=== PATIENT | male | born 1970 | race Caucasian/White ===

== ENCOUNTER 2016-12-27 13:42 | Emergency (ER) | payer MEDICAID ==
[~2016-12-27] VITALS: Ht 172.7 cm; Wt 90.7 kg
[2016-12-27 13:51] VITALS: BP_SYST 136
--- NOTE | 2016-12-27 13:56 | NUR ---
Pt to bed 4
--- NOTE | 2016-12-27 14:00 | NUR ---
Received Pt in bed 4. Pt c/o blurred vision and white spots on hands. Redness noted bilateral eyes, no drainage noted.
--- NOTE | 2016-12-27 14:15 | NUR ---
Pt refusing EKG. Unable to place leads on Pt. Pt has a hairy chest. Pt refuse to shave chest hair off.
--- NOTE | 2016-12-27 14:49 | NUR ---
Dr. Sandoval at the bedside evaluating Pt and discussing plan of care.
[2016-12-27 14:54] LABS: BASOPHILS # (AUTO) 0.1 K/uL (0.0-0.2); BASOPHILS % (AUTO) 1.3 % (0.0-2.0); EOSINOPHILS # (AUTO) 0.1 K/uL (0.0-0.4); EOSINOPHILS % (AUTO) 1.9 % (0.0-4.0); HEMATOCRIT 41.2 % (36-54); HEMOGLOBIN 13.9 g/dL (14.0-18.0); LYMPHOCYTES # (AUTO) 1.5 K/uL (1.0-5.5); LYMPHOCYTES % (AUTO) 23.5 % (20.5-51.5); MEAN CORPUSCULAR HEMOGLOBIN 28 pg (27-31); MEAN CORPUSCULAR HGB CONC 34 % (32-36); MEAN CORPUSCULAR VOLUME 83 fL (79.0-98.0); MONOCYTES # (AUTO) 0.4 K/uL (0.0-1.0); MONOCYTES % (AUTO) 6.3 % (1.7-9.3); NEUTROPHILS # (AUTO) 4.3 K/uL (1.8-7.7); PLATELET COUNT (AUTO) 196 K/uL (130-430); RED BLOOD CELL COUNT(AUTO) 4.99 MIL/uL (4.2-6.2); RED CELL DISTRIBUTION WIDTH 11.8 % (9.0-15.0); WHITE BLOOD COUNT (AUTO) 6.4 K/uL (4.8-10.8)
[2016-12-27 15:04] LABS: INR 1.1 (0.80-1.20); PROTHROMBIN TIME 11.6 SECS (9.5-12.5)
[2016-12-27 15:07] LABS: CALCIUM 9.1 mg/dL (8.4-11.0); CREATININE 0.82 mg/dL (0.55-1.30); POTASSIUM 4.1 mmol/L (3.5-5.1)
[2016-12-27 15:11] LABS: ALBUMIN 3.7 g/dL (3.4-4.8); TOTAL BILIRUBIN 0.6 mg/dL (0.0-1.0); TOTAL PROTEIN, SERUM 7.7 g/dL (6.4-8.3)
--- NOTE | 2016-12-27 15:36 | NUR ---
Dr. Sandoval at the bedside discussing plan of care.
[2016-12-27 15:40] VITALS: BP_SYST 137
--- NOTE | 2016-12-27 15:41 | NUR ---
Patient given written and verbal discharge instructions and verbalizes understanding. ER MD discussed with patient the results and treatment provided. Given copies of tests performed in ER. Patient in stable condition. ID arm band removed. Rx of Azithromycin given. Patient educated on pain management and to follow up with PMD. Pain Scale 0/10. Opportunity for questions provided and answered. Pt ambulated to private auto
[2016-12-27 15:55] LABS: BILIRUBIN,URINE NEGATIVE (NEGATIVE); CLARITY/URINE CLEAR (CLEAR); COLOR,URINE YELLOW (YELLOW); GLUCOSE,URINE TRACE (NEGATIVE); KETONES,URINE NEGATIVE (NEGATIVE); LEUKOCYTE ESTERASE ,URINE NEGATIVE (NEGATIVE); NITRITE, URINE NEGATIVE (NEGATIVE); PROTEIN URINE NEGATIVE (NEGATIVE)
[2016-12-27 16:09] LABS: BLOOD, URINE TRACE (NEGATIVE)
[2016-12-27 16:25] LABS: BACTERIA,URINE FEW /HPF (None Seen); MUCUS,URINE 2+ /LPF (None Seen)
== END 2016-12-27 15:41 | disposition home or self-care (01) ==
LOC: SED 13:42
DX: R00.2 Palpitations (principal); T36.0X5A Adverse effect of penicillins, initial encounter; J20.9 Acute bronchitis, unspecified; E11.9 Type 2 diabetes mellitus without complications; I10 Essential (primary) hypertension; Z86.79 Personal history of other diseases of the circulatory system; Y92.89 Other specified places as the place of occurrence of the external cause
CPT/HCPCS: 36415; 80053; 81000-TC; 83880; 84484; 85025; 85610-TC; 85730-TC; 99285

== ENCOUNTER 2017-10-08 17:24 | Emergency (ER) | payer MEDICAID ==
[~2017-10-08] VITALS: Ht 172.7 cm; Wt 92.1 kg
[2017-10-08 18:01] VITALS: BP_SYST 109
--- NOTE | 2017-10-08 18:09 | NUR ---
Patient ambulated with steady gait into triage from outside. After triage placed in waiting room. VSS and patient appears in no acute distress at this time. Accompanied by , awaiting available bed, and MD notified of need for MSE. After triage pt stated he can't walk, provided patient ambulated from triage chair into WC with no assistance. Informed to remain NPO, requested urine sample patient refused
--- NOTE | 2017-10-08 18:34 | NUR ---
Patient to ER bed 02 to gown for evaluation. Side rails up. Report given to YANETH Kraus.
--- NOTE | 2017-10-08 18:53 | NUR ---
Dr. Sumner at bedside for evaluation
[2017-10-08] MEDS ORDERED: NACL 0.9% 1,000 ML IV ONE (18:56)
[2017-10-08] MEDS ORDERED: KETOROLAC TROMETHAMINE 30 MG VIAL IVP ONE (19:00)
--- NOTE | 2017-10-08 19:10 | NUR ---
Patient states abdominal pain is pain scale 7/10 at this time with a sharp sensation.
--- NOTE | 2017-10-08 19:10 | NUR ---
Assumed care of patient. Patient calmly resting in ER bed, no signs of distress noted. Vital signs reassessed.
--- NOTE | 2017-10-08 19:10 | NUR ---
Patient AAOx3, ambulatory. Patient states having "generalized abdominal pain" for approximately 5 days prior to ER visit with +nausea and +vomiting. Patient denies diarrhea at this time. Patient also states he has burning on urination. Patient denies any other complaints.
[2017-10-08 19:15] LABS: BASOPHILS # (AUTO) 0.1 K/uL (0.0-0.2); EOSINOPHILS # (AUTO) 0.1 K/uL (0.0-0.4); EOSINOPHILS % (AUTO) 1.2 % (0.0-4.0); HEMATOCRIT 38.2 % (36-54); HEMOGLOBIN 12.4 g/dL (14.0-18.0); LYMPHOCYTES # (AUTO) 1.1 K/uL (1.0-5.5); LYMPHOCYTES % (AUTO) 16.7 % (20.5-51.5); MEAN CORPUSCULAR HEMOGLOBIN 27 pg (27-31); MEAN CORPUSCULAR HGB CONC 33 % (32-36); MEAN CORPUSCULAR VOLUME 82 fL (79.0-98.0); MONOCYTES # (AUTO) 0.5 K/uL (0.0-1.0); MONOCYTES % (AUTO) 7.8 % (1.7-9.3); NEUTROPHILS % (AUTO) 72.3 % (40.0-70.0); PLATELET COUNT (AUTO) 219 K/uL (130-430); RED BLOOD CELL COUNT(AUTO) 4.67 MIL/uL (4.2-6.2); RED CELL DISTRIBUTION WIDTH 13.1 % (9.0-15.0); WHITE BLOOD COUNT (AUTO) 6.8 K/uL (4.8-10.8)
--- NOTE | 2017-10-08 19:20 | NUR ---
Note riveraone in EDM - 10/08/17 at 1928 by SUJATA # 20 gauge angiocath placed to right AC. Use of asceptic technique. Blood return noted. Blood for lab drawn from site. Flushed with 10 cc of normal saline. No evidence of infiltration noted. Patient tolerated well.
--- NOTE | 2017-10-08 19:20 | NUR ---
# 20 gauge angiocath placed to right AC. Use of asceptic technique. Blood return noted. Flushed with 10 cc of normal saline. No evidence of infiltration noted. Patient tolerated well.
--- NOTE | 2017-10-08 19:27 | NUR ---
Patient to radiology via gurney.
[2017-10-08 19:49] LABS: CALCIUM 9.7 mg/dL (8.4-11.0); CREATININE 0.81 mg/dL (0.55-1.30); POTASSIUM 4.6 mmol/L (3.5-5.1)
[2017-10-08 19:53] LABS: ALBUMIN 3.4 g/dL (3.4-4.8); TOTAL BILIRUBIN 0.6 mg/dL (0.0-1.0)
--- NOTE | 2017-10-08 21:00 | NUR ---
ER Dr. Gillespie at bedside examining patient.
--- NOTE | 2017-10-08 21:10 | NUR ---
Patient calmly resting in ER bed, no signs of distress noted. Vital signs within therapeutic range.
--- NOTE | 2017-10-08 23:06 | NUR ---
Patient calmly resting in ER bed, no signs of distress noted. Vital signs within therapeutic range.
[2017-10-08 23:38] VITALS: BP_SYST 116
--- NOTE | 2017-10-08 23:38 | NUR ---
Patient given written and verbal discharge instructions and verbalizes understanding. ER MD discussed with patient the results and treatment provided. Patient in stable condition. ID arm band removed. IV catheter removed intact and dressing applied, no active bleeding. Rx of bentyl given. Patient educated on pain management and to follow up with PMD. Pain Scale 0/10. Opportunity for questions provided and answered.
== END 2017-10-08 23:38 | disposition home or self-care (01) ==
LOC: SED 17:24
DX: R10.30 Lower abdominal pain, unspecified (principal); R11.0 Nausea; E11.9 Type 2 diabetes mellitus without complications; I10 Essential (primary) hypertension; Z86.79 Personal history of other diseases of the circulatory system
CPT/HCPCS: 36415; 74021; 80053; 83690; 85025; 86710; 96361; 96374; 99285; J1885; J7030

== ENCOUNTER 2018-05-15 23:31 | Emergency (ER) | payer MEDICAID ==
[~2018-05-15] VITALS: Ht 172.7 cm; Wt 90.7 kg
[2018-05-15 23:37] VITALS: BP_SYST 128
[2018-05-16] MEDS ORDERED: MAG HYDROX/AL HYDROX/SIMETH 30 ML, BELLADONNA ALKALOIDS/PHENOBARB 10 ML, LIDOCAINE VISC... PO ONE ×3 (00:15)
[2018-05-16 00:48] LABS: BASOPHILS # (AUTO) 0.1 K/uL (0.0-0.2); EOSINOPHILS # (AUTO) 0.1 K/uL (0.0-0.4); EOSINOPHILS % (AUTO) 1.9 % (0.0-4.0); HEMATOCRIT 33.6 % (36-54); HEMOGLOBIN 10.8 g/dL (14.0-18.0); LYMPHOCYTES # (AUTO) 1.8 K/uL (1.0-5.5); MEAN CORPUSCULAR HEMOGLOBIN 26 pg (27-31); MEAN CORPUSCULAR HGB CONC 32 % (32-36); MEAN CORPUSCULAR VOLUME 82 fL (79.0-98.0); MONOCYTES # (AUTO) 0.4 K/uL (0.0-1.0); MONOCYTES % (AUTO) 6.2 % (1.7-9.3); NEUTROPHILS # (AUTO) 3.3 K/uL (1.8-7.7); NEUTROPHILS % (AUTO) 58.9 % (40.0-70.0); PLATELET COUNT (AUTO) 219 K/uL (130-430); RED BLOOD CELL COUNT(AUTO) 4.12 MIL/uL (4.2-6.2); RED CELL DISTRIBUTION WIDTH 13.1 % (9.0-15.0); WHITE BLOOD COUNT (AUTO) 5.7 K/uL (4.8-10.8)
[2018-05-16 00:54] LABS: CALCIUM 8.9 mg/dL (8.4-11.0); CREATININE 0.82 mg/dL (0.55-1.30); POTASSIUM 4.1 mmol/L (3.5-5.1)
[2018-05-16 01:00] LABS: ALBUMIN 3.2 g/dL (3.4-4.8); TOTAL BILIRUBIN 0.8 mg/dL (0.0-1.0)
[2018-05-16 01:15] VITALS: BP_SYST 126
== END 2018-05-16 01:15 | disposition home or self-care (01) ==
LOC: SED 23:31
DX: K52.9 Noninfective gastroenteritis and colitis, unspecified (principal); E11.9 Type 2 diabetes mellitus without complications; I10 Essential (primary) hypertension; Z86.79 Personal history of other diseases of the circulatory system
CPT/HCPCS: 36415; 80053; 83690; 85025; 93005; 99285; J2001

== ENCOUNTER 2018-07-15 19:22 | Emergency (ER) | payer MEDICAID ==
[~2018-07-15] VITALS: Ht 172.7 cm; Wt 87.5 kg
[2018-07-15 19:31] VITALS: BP_SYST 118
[2018-07-15] MEDS ORDERED: NACL 0.9% 1,000 ML IV SCH (19:45)
[2018-07-15] MEDS ORDERED: MORPHINE 4 MG/ML INJ. SYRINGE IVP ONE (19:45)
[2018-07-15] MEDS ORDERED: ONDANSETRON HCL 4 MG/2 ML VIAL IVP ONE (19:45)
[2018-07-15 19:57] LABS: BILIRUBIN,URINE 1+ (NEGATIVE); BLOOD, URINE NEGATIVE (NEGATIVE); CLARITY/URINE CLEAR (CLEAR); COLOR,URINE YELLOW (YELLOW); GLUCOSE,URINE NEGATIVE (NEGATIVE); KETONES,URINE NEGATIVE (NEGATIVE); LEUKOCYTE ESTERASE ,URINE NEGATIVE (NEGATIVE); NITRITE, URINE NEGATIVE (NEGATIVE); PROTEIN URINE TRACE (NEGATIVE)
[2018-07-15 20:03] LABS: BACTERIA,URINE FEW /HPF (None Seen); MUCUS,URINE 2+ /LPF (None Seen); RBC,URINE 0-3 /HPF (0-3); WBC,URINE 0-3 /HPF (0-3)
[2018-07-15 20:19] LABS: BASOPHILS # (AUTO) 0.1 K/uL (0.0-0.2); EOSINOPHILS # (AUTO) 0.1 K/uL (0.0-0.4); LYMPHOCYTES # (AUTO) 1.5 K/uL (1.0-5.5); MEAN CORPUSCULAR HEMOGLOBIN 26 pg (27-31); MEAN CORPUSCULAR HGB CONC 33 % (32-36); MEAN CORPUSCULAR VOLUME 80 fL (79.0-98.0); MONOCYTES # (AUTO) 0.4 K/uL (0.0-1.0)
[2018-07-15 20:23] LABS: BASOPHILS % (AUTO) 1.4 % (0.0-2.0); EOSINOPHILS % (AUTO) 1.4 % (0.0-4.0); HEMATOCRIT 37.6 % (36-54); HEMOGLOBIN 12.2 g/dL (14.0-18.0); LYMPHOCYTES % (AUTO) 20.2 % (20.5-51.5); MONOCYTES % (AUTO) 5.6 % (1.7-9.3); NEUTROPHILS # (AUTO) 5.3 K/uL (1.8-7.7); NEUTROPHILS % (AUTO) 71.4 % (40.0-70.0); PLATELET COUNT (AUTO) 244 K/uL (130-430); RED BLOOD CELL COUNT(AUTO) 4.68 MIL/uL (4.2-6.2); RED CELL DISTRIBUTION WIDTH 13.6 % (9.0-15.0); WHITE BLOOD COUNT (AUTO) 7.4 K/uL (4.8-10.8)
[2018-07-15 20:26] LABS: CALCIUM 9.1 mg/dL (8.4-11.0); CREATININE 0.9 mg/dL (0.55-1.30)
[2018-07-15 20:30] LABS: ALBUMIN 3.4 g/dL (3.4-4.8); TOTAL BILIRUBIN 0.8 mg/dL (0.0-1.0)
[2018-07-15] MEDS ORDERED: IOHEXOL 100 ML IV ONE (21:25)
[2018-07-15 22:34] VITALS: BP_SYST 117
== END 2018-07-15 22:34 | disposition home or self-care (01) ==
LOC: SED 19:22
DX: K29.70 Gastritis, unspecified, without bleeding (principal); I10 Essential (primary) hypertension
CPT/HCPCS: 36415; 74177; 80053; 81000; 85025; 96361; 96374; 96375; 99285; J2270; J2405; J7030; Q9967

== ENCOUNTER 2018-12-20 20:51 | Emergency (ER) | payer MEDICAID ==
[~2018-12-20] VITALS: Ht 172.7 cm; Wt 88.5 kg
[2018-12-20 22:15] VITALS: BP_SYST 149
--- NOTE | 2018-12-20 22:21 | NUR ---
Patient to ER bed [address] to gown for evaluation. Side rails up. Report given to MELANIE WOLFE.
--- NOTE | 2018-12-20 22:22 | NUR ---
Pt brought by self,A&Ox4, pt presents to ER with Lower back pain x 2 months, worsening over the past 15 days,skin pink and warm, cap refill <3, ambulatory, respirations even and unlabored.
--- NOTE | 2018-12-20 22:25 | NUR ---
ER at bedside examining patient.
[2018-12-20] MEDS: KETOROLAC TROMETHAMINE 60 MG/2 ML VIAL IM ONE (22:42)
--- NOTE | 2018-12-20 22:43 | NUR ---
PT TAKEN TO RADIOLOGY .
--- NOTE | 2018-12-20 23:13 | NUR ---
DR LEI OCHOA PT .
--- NOTE | 2018-12-20 23:19 | NUR ---
Report given to Adrián WOLFE
--- NOTE | 2018-12-20 23:20 | NUR ---
Patient given written and verbal discharge instructions by Dr Harper and verbalizes understanding. ER MD discussed with patient the results and treatment provided. Patient in stable condition. ID arm band removed. Rx of Naproxen 500mg given. Patient educated on pain management and to follow up with PMD. Pain Scale 5/10. Opportunity for questions provided and answered. Medication side effect fact sheet provided.
[2018-12-20 23:29] VITALS: BP_SYST 149
== END 2018-12-20 23:29 | disposition home or self-care (01) ==
LOC: SED 20:51
DX: M51.16 Intervertebral disc disorders with radiculopathy, lumbar region (principal); E11.9 Type 2 diabetes mellitus without complications; I10 Essential (primary) hypertension; Z86.79 Personal history of other diseases of the circulatory system
CPT/HCPCS: 72131; 96372; 99284; J1885